=== PATIENT | female | born 1955 | race Caucasian/White ===

== ENCOUNTER 2019-04-19 09:24 | Day surgery (SDC) | payer OTHER ==
[2019-04-16 11:04] VITALS: BMI 25.4
[2019-04-19] MEDS ORDERED: ATROPINE SO4 0.4 MG/1 ML VIAL ONE (11:22)
[2019-04-19 11:46] VITALS: TEMP 97.6
[2019-04-19 12:51] VITALS: BP 108/56; PULSE 76
--- NOTE | 2019-04-22 16:24 | PATH ---
Surgical Pathology Report Patient Name: MINDY BLANCO [facility]. Rec. #: [id number] /Age/Gender: 1955 (Age: 64) / F Account: [id number] Location: [id number] Taken: 04/19/2019 Received: 04/19/2019 Reported: 04/22/2019 Physicians: Jac Lane M.D. Specimen(s) Received POLYP TRANSVERSE COLON Clinical History Colon, polyp Final Diagnosis TRANSVERSE COLON, POLYP, BIOPSY: HYPERPLASTIC POLYP. Electronically Signed Myesha Lawson M.D. Gross Description Received in formalin, labeled "polyp, transverse colon" is a brownlee, irregular portion of soft tissue measuring 0.2 cm. in greatest dimension. The specimen is submitted in toto in one cassette. AE/04/20/2019 ebram/04/20/2019
== END 2019-04-19 12:35 | disposition home or self-care (01) ==
LOC: FASU-ENDO 09:24
PROVIDERS: ATTEND Internal Medicine Gastroenterology
PROC: 0DBL8ZX Excision of Transverse Colon, Via Natural or Artificial Opening Endoscopic, Diagnostic (ICD-10-PCS; principal; 2019-04-19 11:11)
DX: Z12.11 Encounter for screening for malignant neoplasm of colon (principal); Z80.0 Family history of malignant neoplasm of digestive organs; K63.5 Polyp of colon